=== PATIENT | female | born 1995 | race Caucasian/White ===

== ENCOUNTER 2024-06-28 10:39 | Outpatient (CLI) | payer BC, SELFPAY ==
--- NOTE | ~2024-06-28 | XR_ITS ---
EXAMINATION: XR hysterosalpingogram DATE: 06/28/2024 12:22 INDICATION: Infertility TECHNIQUE: Multiple fluoroscopic images were obtained during contrast infusion into the endometrial c anal of the uterus by the primary physician. Fluoroscopy exposure time was 0.4 minutes. A total of 5 images were recorded. Total DAP was 1.1 Gycm^2 FINDINGS: The uterine cavity demonstrates normal morphology. The fallopian tubes are normal in caliber and pat ent bilaterally. There is normal spillage of contrast into the peritoneum on both sides. IMPRESSION: 1. Normal hysterosalpingogram. Reviewed, dictated and finalized at location [facility]
[2024-06-28 12:24] LABS: Beta HCG Quantitative < 2.39 mIU/ML
== END 2024-06-28 10:40 | disposition home or self-care (01) ==
PROVIDERS: Visit Provider Obstetrics & Gynecology
DX: N97.9 Female infertility, unspecified (principal)
CPT/HCPCS: 36415; 58340; 74740; 84702

== ENCOUNTER 2025-04-18 11:15 | Observation (INO) | payer BC, SELFPAY ==
--- NOTE | 2025-04-18 12:19 | PM.OBTRLD ---
OB - Triage/Final Diagnosis Visit Information Date of evaluation: 04/18/25 Reason for evaluation: other (hyperemesis gravidarum) Comments/Additional reasons for admission: I have assessed the risk for this patient, Celeste Silver, and determined that she would benefit from observation care.
[2025-04-18] MEDS: METOCLOPRAMIDE HCL INJ 10 MG/2 ML VIAL IV PUSH (12:20)
[2025-04-18] MEDS: DEXTROSE 5%/LACTATED RINGERS 1,000 ML 999 ML XX (12:21)
[2025-04-18 12:22] VITALS: BMI 18.7
--- NOTE | 2025-04-18 12:23 | OBADM ---
This patient, Celeste Silver, admitted to the OB room 115 for observation. Patient/family oriented to hospital policies and general routines including ID bracelet, bed and alarms, visiting hours, pain management, procedures, bathroom and other care routines, personal items, smoking policy, room service/diet, and visiting hours. Patient/Family are encouraged to report perceived risks to care and to ask questions if they do not understand what they are told or what they should do.
[2025-04-18 13:05] LABS: Alanine Aminotransferase 19 U/L (6-35); Albumin Level 4.3 g/dL (3.5-5.1); Alkaline Phosphatase 59 U/L (38-126); Anion Gap 9 mmol/L (4-12); Aspartate Amino Transferase 25 U/L (14-36); Bilirubin,Total 0.7 mg/dL (0.2-1.3); Blood Urea Nitrogen 8 mg/dL (7-17); Calcium 8.9 mg/dL (8.4-10.2); Carbon Dioxide 23 mmol/L (22-30); Chloride 101 mmol/L (98-107); Estimated CRCL calculation 99 ml/min; Estimated Glomerular Filt Rate > 60; Glucose 83 mg/dL (65-110); Potassium 3.6 mmol/L (3.4-5.0); Sodium 133 mmol/L (137-145); Total Protein 7.2 g/dL (6.3-8.2)
[2025-04-18 13:46] LABS: Add Urine Microscopic? YES; Appearance Urine Turbid (Clear); Glucose Urine UA Negative (Negative); Leukocyte Esterase Ur 3+ LEU/UL (Negative); Need Manual Microscopic Reviewed; Nitrate Urine Negative (Negative); Specific Grav Ur 1.018 (1.001-1.035)
[2025-04-18 13:47] LABS: Thyroid Stimulating Hormone Reflex 2.290 uIU/mL (0.465-4.68)
--- NOTE | 2025-04-18 15:23 | PC.NURSE ---
Dr. Lopez informed pt was tolerating PO fluids and fruit cup at this time. New order received for PO reglan 10mg q6h prn and okay to discharge. Pt educated on discharge instructions and given written material with signs and symptoms of labor. New prescription transmitted to pharmacy. Pt and spouse verbalized understanding.
== END 2025-04-18 14:10 | disposition home or self-care (01) ==
PROVIDERS: Admitting Provider Obstetrics & Gynecology; Visit Provider Obstetrics & Gynecology
DX: O21.0 Mild hyperemesis gravidarum (principal)
CPT/HCPCS: 36415; 80053; 81001; 84443; 96361; 96374; G0378; G0379; J2765; J7121

== ENCOUNTER 2025-04-19 18:57 | Observation (INO) | payer BC, SELFPAY ==
[2025-04-19] VITALS (64 sets, daily range): BP systolic 119–146; BP diastolic 70–105; PULSE 61–111; RESP 18; TEMP 36.6–36.7; O2SAT 98–100; BMI 19.2
--- NOTE | 2025-04-19 18:57 | PC.NURSE ---
Pt arrives to unit with hyperemesis, vomiting eight times today.
--- NOTE | 2025-04-19 19:43 | PC.NURSE ---
Addendum entered by Isha Alberto RN 04/19/25 22:58: Orders to administer reglan if nausea not resolved by phenergan. Original Note: Dr. Miranda Merrill responded to page, update on pt, hyperemesis, and vomiting eight times today. Orders received to administer D5LR bolus then 200 ml/hr, pepcid, phenergan, and tylenol as needed.
[2025-04-19] MEDS: DEXTROSE 5%/LACTATED RINGERS 1,000 ML 999 ML IV CONT (20:26)
[2025-04-19] MEDS: FAMOTIDINE 20 MG/2 ML VIAL IV PUSH (20:29)
[2025-04-19] MEDS: PROMETHAZINE HCL 25 MG/ML AMPUL 12.5 MG IV PUSH (20:35)
--- NOTE | 2025-04-19 21:21 | PC.NURSE ---
Dr. Miranda Merrill called to check on pt, update on emesis. Orders received to administer banana bag after D5LR bolus then D5LR 200 ml/hr.
[2025-04-19] MEDS: THIAMINE HCL INJ 100 MG, FOLIC ACID INJ 1 MG, MULTIVITAMINS-12 INJ VIAL 1 5 ML, MULTIVI... 150 MG IV CONT (22:08)
--- NOTE | 2025-04-19 22:49 | OBADM ---
This patient, Celeste Silver, admitted to the OB room [facility] 115 for observation. Patient/family oriented to hospital policies and general routines including ID bracelet, bed and alarms, visiting hours, pain management, procedures, bathroom and other care routines, personal items, smoking policy, room service/diet, and visiting hours. Patient/Family are encouraged to report perceived risks to care and to ask questions if they do not understand what they are told or what they should do.
[2025-04-20] VITALS (115 sets, daily range): BP systolic 117–118; BP diastolic 68–69; PULSE 41–155; RESP 14–18; TEMP 36.5–36.9; O2SAT 79–100
[2025-04-20] MEDS: PROMETHAZINE HCL 25 MG/ML AMPUL 12.5 MG IV PUSH ×2 (00:30→04:38)
--- NOTE | 2025-04-20 01:28 | PC.NURSE ---
Pt calls to nurses station, reports fluttering in chest and spasm in right arm.
--- NOTE | 2025-04-20 01:29 | PC.NURSE ---
RN at bedside, discontinues banana bag. Heart and lung sounds assessed, within normal limits.
--- NOTE | 2025-04-20 01:43 | PC.NURSE ---
Dr. Miranda Merrill responded to page, update on pt, flutter in chest, spasm in arm, and normal heart and lung sounds. Orders received to discontinue banana bag, resume D5LR 200 ml/hr, and administer tums.
[2025-04-20] MEDS: DEXTROSE 5%/LACTATED RINGERS 1,000 ML 200 ML IV CONT (01:49)
[2025-04-20] MEDS: CALCIUM CARBONATE (TUMS) 500 MG (200 MG ELEMENTAL) PO (02:06)
--- NOTE | 2025-04-20 04:38 | PC.NURSE ---
Pt tolerated granola and fluids.
--- NOTE | 2025-04-20 05:44 | PC.NURSE ---
Dr. Miranda Merrill responded to page, update on tolerating granola and fluids. Provider will round on pt this morning. No new orders at this time.
--- NOTE | 2025-04-20 06:57 | PM.IMHP ---
H&P: HPI History of Present Illness Date/Time: 04/20/25 06:57 Chief Complaint: Nausea and vomiting Narrative: 30-year-old 1 under first-trimester complaining of nausea and vomiting. She was seen the day before was hydrated and sent home so far Reglan nor Zofran. Thickened the nausea PMFSH Social History Social History Lack of Transportation: No Lack of Food: Never True Current Housing: I Have Housing Concerned About Future Housing: No Difficulty Paying Gas/Electric Bills: No Difficulty Paying for Meds: No Currently Unemployed: No Education: Master's Degree or Higher Difficulty w/ Childcare or Family Care: No Meds Home Medications and Allergies Home Medications ?Medication ?Instructions ?Recorded ?Confirmed ?Type aspirin 81 mg tablet,delayed 81 mg PO DAILY 04/18/25 04/19/25 History release (Adult Low Dose Aspirin) calcium 500 mg tablet 500 mg PO DAILY 04/18/25 04/19/25 History famotidine 20 mg tablet (Acid 20 mg PO BID 04/18/25 04/19/25 History Rn Paralegal (famotidine)) magnesium citrate 85 mg chewable 85 mg PO DAILY 04/18/25 04/19/25 History tablet metoclopramide HCl 10 mg tablet 10 mg PO Q6H PRN nausea and 04/18/25 04/19/25 Rx (Reglan) vomiting #30 tabs [id number] 1 mg 1 tablet PO DAILY 04/18/25 04/19/25 History tablet Allergies Allergy/AdvReac Type Severity Reaction Status Date / Time caffeine Allergy tachyacardi Verified 04/19/25 19:10 a gluten Allergy Hives Verified 04/19/25 19:10 Vital Signs Vital Signs - 24 hr 04/19/25 19:13 04/19/25 19:14 04/19/25 19:15 Temperature Pulse Rate 79 Respiratory Rate Blood Pressure 136/70 Pulse Oximetry 100 100 04/19/25 19:16 04/19/25 19:19 04/19/25 19:21 Temperature Pulse Rate 87 Respiratory Rate Blood Pressure 130/74 Pulse Oximetry 100 100 04/19/25 19:26 04/19/25 19:30 04/19/25 19:31 Temperature Pulse Rate 76 Respiratory Rate Blood Pressure 119/70 Pulse Oximetry 100 100 04/19/25 19:38 04/19/25 19:43 04/19/25 19:48 Temperature Pulse Rate Respiratory Rate Blood Pressure Pulse Oximetry 100 100 100 04/19/25 19:53 04/19/25 19:58 04/19/25 20:00 Temperature Pulse Rate 89 Respiratory Rate Blood Pressure 146/105 H Pulse Oximetry 100 100 04/19/25 20:03 04/19/25 20:19 04/19/25 20:24 Temperature Pulse Rate Respiratory Rate Blood Pressure Pulse Oximetry 100 100 100 04/19/25 20:29 04/19/25 20:34 04/19/25 20:38 Temperature Pulse Rate 76 Respiratory Rate Blood Pressure 128/72 Pulse Oximetry 100 100 100 04/19/25 20:38 04/19/25 20:43 04/19/25 20:48 Temperature 98.0 F Pulse Rate 76 Respiratory Rate 18 Blood Pressure 128/72 Pulse Oximetry 100 100 100 04/19/25 20:53 04/19/25 20:58 04/19/25 20:59 Temperature Pulse Rate Respiratory Rate Blood Pressure Pulse Oximetry 99 100 98 04/19/25 21:01 04/19/25 21:06 04/19/25 21:11 Temperature Pulse Rate Respiratory Rate Blood Pressure Pulse Oximetry 98 100 100 04/19/25 21:16 04/19/25 21:21 04/19/25 21:26 Temperature Pulse Rate Respiratory Rate Blood Pressure Pulse Oximetry 100 100 100 04/19/25 21:31 04/19/25 21:36 04/19/25 21:40 Temperature 98 F Pulse Rate Respiratory Rate Blood Pressure Pulse Oximetry 100 100 04/19/25 21:41 04/19/25 21:49 04/19/25 21:53 Temperature 98 F Pulse Rate Respiratory Rate Blood Pressure Pulse Oximetry 100 100 04/19/25 21:54 04/19/25 21:59 04/19/25 22:04 Temperature Pulse Rate Respiratory Rate Blood Pressure Pulse Oximetry 100 100 100 04/19/25 22:09 04/19/25 22:10 04/19/25 22:15 Temperature Pulse Rate 77 Respiratory Rate Blood Pressure 122/72 Pulse Oximetry 100 100 100 04/19/25 22:20 04/19/25 22:25 04/19/25 22:30 Temperature Pulse Rate Respiratory Rate Blood Pressure Pulse Oximetry 100 100 100 04/19/25 22:35 04/19/25 22:40 04/19/25 22:45 Temperature Pulse Rate Respiratory Rate Blood Pressure Pulse Oximetry 100 100 100 04/19/25 22:50 04/19/25 22:55 04/19/25 23:00 Temperature Pulse Rate Respiratory Rate Blood Pressure Pulse Oximetry 100 100 100 04/19/25 23:05 04/19/25 23:10 04/19/25 23:15 Temperature Pulse Rate Respiratory Rate Blood Pressure Pulse Oximetry 100 100 100 04/19/25 23:20 04/19/25 23:25 04/19/25 23:30 Temperature Pulse Rate Respiratory Rate Blood Pressure Pulse Oximetry 100 100 100 04/19/25 23:35 04/19/25 23:40 04/19/25 23:45 Temperature Pulse Rate Respiratory Rate Blood Pressure Pulse Oximetry 100 100 100 04/19/25 23:50 04/19/25 23:55 04/20/25 00:00 Temperature Pulse Rate Respiratory Rate Blood Pressure Pulse Oximetry 100 100 100 04/20/25 00:05 04/20/25 00:10 04/20/25 00:15 Temperature Pulse Rate Respiratory Rate Blood Pressure Pulse Oximetry 100 100 100 04/20/25 00:21 04/20/25 00:26 04/20/25 00:31 Temperature Pulse Rate Respiratory Rate Blood Pressure Pulse Oximetry 85 L 100 100 04/20/25 00:31 04/20/25 00:31 04/20/25 00:31 Temperature Pulse Rate 68 Respiratory Rate Blood Pressure 118/68 Pulse Oximetry 100 04/20/25 00:31 04/20/25 00:31 04/20/25 00:36 Temperature 97.7 F 97.7 F Pulse Rate 71 Respiratory Rate 18 Blood Pressure 118/68 Pulse Oximetry 100 100 04/20/25 00:41 04/20/25 00:46 04/20/25 00:51 Temperature Pulse Rate Respiratory Rate Blood Pressure Pulse Oximetry 100 100 99 04/20/25 00:56 04/20/25 01:01 04/20/25 01:06 Temperature Pulse Rate Respiratory Rate Blood Pressure Pulse Oximetry 99 99 100 04/20/25 01:11 04/20/25 01:16 04/20/25 01:21 Temperature Pulse Rate Respiratory Rate Blood Pressure Pulse Oximetry 100 100 100 04/20/25 01:24 04/20/25 01:29 04/20/25 01:33 Temperature Pulse Rate Respiratory Rate Blood Pressure Pulse Oximetry 97 100 100 04/20/25 01:38 04/20/25 01:41 04/20/25 01:46 Temperature Pulse Rate Respiratory Rate Blood Pressure Pulse Oximetry 100 100 100 04/20/25 01:51 04/20/25 01:56 04/20/25 02:00 Temperature Pulse Rate Respiratory Rate Blood Pressure Pulse Oximetry 100 100 100 04/20/25 02:05 04/20/25 02:10 04/20/25 02:15 Temperature Pulse Rate Respiratory Rate Blood Pressure Pulse Oximetry 100 79 L 100 04/20/25 02:20 04/20/25 02:25 04/20/25 02:30 Temperature Pulse Rate Respiratory Rate Blood Pressure Pulse Oximetry 100 100 100 04/20/25 02:36 04/20/25 02:41 04/20/25 02:46 Temperature Pulse Rate Respiratory Rate Blood Pressure Pulse Oximetry 100 100 100 04/20/25 02:51 04/20/25 02:56 04/20/25 03:01 Temperature Pulse Rate Respiratory Rate Blood Pressure Pulse Oximetry 100 100 100 04/20/25 03:06 04/20/25 03:11 04/20/25 03:16 Temperature Pulse Rate Respiratory Rate Blood Pressure Pulse Oximetry 100 100 100 04/20/25 03:21 04/20/25 03:25 04/20/25 03:26 Temperature Pulse Rate Respiratory Rate Blood Pressure Pulse Oximetry 100 100 87 L 04/20/25 03:26 04/20/25 03:26 04/20/25 03:27 Temperature Pulse Rate Respiratory Rate Blood Pressure Pulse Oximetry 100 100 100 04/20/25 03:32 04/20/25 03:37 04/20/25 03:42 Temperature Pulse Rate Respiratory Rate Blood Pressure Pulse Oximetry 100 100 100 04/20/25 03:47 04/20/25 03:48 04/20/25 03:53 Temperature Pulse Rate Respiratory Rate Blood Pressure Pulse Oximetry 100 100 100 04/20/25 03:58 04/20/25 04:03 04/20/25 04:08 Temperature Pulse Rate Respiratory Rate Blood Pressure Pulse Oximetry 100 100 100 04/20/25 04:13 04/20/25 04:18 04/20/25 04:23 Temperature Pulse Rate Respiratory Rate Blood Pressure Pulse Oximetry 100 100 100 04/20/25 04:28 04/20/25 04:33 04/20/25 04:38 Temperature Pulse Rate Respiratory Rate Blood Pressure Pulse Oximetry 99 99 100 04/20/25 04:43 04/20/25 04:48 04/20/25 04:53 Temperature Pulse Rate Respiratory Rate Blood Pressure Pulse Oximetry 100 100 100 04/20/25 04:58 04/20/25 05:03 04/20/25 05:08 Temperature Pulse Rate Respiratory Rate Blood Pressure Pulse Oximetry 100 100 100 04/20/25 05:13 04/20/25 05:18 04/20/25 05:23 Temperature Pulse Rate Respiratory Rate Blood Pressure Pulse Oximetry 100 100 100 04/20/25 05:28 04/20/25 05:33 04/20/25 05:38 Temperature Pulse Rate Respiratory Rate Blood Pressure Pulse Oximetry 100 100 100 04/20/25 05:43 04/20/25 05:48 04/20/25 05:53 Temperature Pulse Rate Respiratory Rate Blood Pressure Pulse Oximetry 100 100 100 04/20/25 05:58 04/20/25 06:03 04/20/25 06:08 Temperature Pulse Rate Respiratory Rate Blood Pressure Pulse Oximetry 100 100 100 04/20/25 06:13 04/20/25 06:18 04/20/25 06:23 Temperature Pulse Rate Respiratory Rate Blood Pressure Pulse Oximetry 100 100 100 04/20/25 06:28 04/20/25 06:33 04/20/25 06:38 Temperature Pulse Rate 80 Respiratory Rate Blood Pressure 117/69 Pulse Oximetry 100 100 100 04/20/25 06:38 04/20/25 06:43 04/20/25 06:48 Temperature 98.4 F Pulse Rate Respiratory Rate 14 Blood Pressure Pulse Oximetry 100 100 04/20/25 06:53 Temperature Pulse Rate Respiratory Rate Blood Pressure Pulse Oximetry 100 Assessment and Plan Assessment and plan (1) Hyperemesis gravidarum: Code(s): O21.0 - Mild hyperemesis gravidarum Status: Acute Plan IV hydration and support
--- NOTE | 2025-04-21 12:01 | PM.OBTRLD ---
OB - Triage/Final Diagnosis Visit Information Date of evaluation: 04/20/25 Reason for evaluation: other (Hyperemesis gravidarum) Comments/Additional reasons for admission: I have assessed the risk for this patient, Celeste Silver, and determined that she would benefit from observation care.
== END 2025-04-20 09:22 | disposition home or self-care (01) ==
PROVIDERS: Admitting Provider Obstetrics & Gynecology; Visit Provider Obstetrics & Gynecology
DX: O21.0 Mild hyperemesis gravidarum (principal); Z3A.12 12 weeks gestation of pregnancy
CPT/HCPCS: 96361; 96365; 96366; 96375; 96376; A9270; G0378; G0379; J2550; J3411; J3475; J7121